=== PATIENT | female | born 1980 ===

== ENCOUNTER 2020-05-05 10:28 | Inpatient (IN) ==
[2020-05-05] MEDS ORDERED: Morphine PF AMP (0.5MG/ML) 5 MG/10 ML AMP ONE (10:34)
[2020-05-05] MEDS ORDERED: Ondansetron 4 mg VIAL 2 MG/ML 2 ml VIAL ONE (10:34)
[2020-05-05] MEDS ORDERED: Dexamethasone IV 4 MG/ML VIAL 1 ml VIAL ONE (10:34)
[2020-05-05] MEDS ORDERED: Oxytocin 10 UNITS/ML 1 ML VIAL ONE (10:34)
[2020-05-05] MEDS ORDERED: Buffered Lidocaine 1% SYRIN 1 ml INTRADERM ONE (10:47)
[2020-05-05] MEDS ORDERED: Lactated Ringers 1000 ml BAG 1,000 ML IV ONE ×2 (10:47→11:38)
[2020-05-05] MEDS ORDERED: Penicillin G Potassium IV 5,000,000 UNITS in NS 0.9% 100 ml BAG 100 ML IVPB ONE (10:50)
[2020-05-05] MEDS ORDERED: fentaNYL 100 mcg/2 ml 50 MCG/ML VIAL IV SLOW PU ONE (10:52)
[2020-05-05] MEDS ORDERED: fentaNYL 100 mcg/2 ml 50 MCG/ML VIAL ONE ×2 (10:53→12:15)
[2020-05-05] MEDS ORDERED: OBEPIDURAL 250 ML EPIDURAL ONE (10:59)
[2020-05-05] MEDS ORDERED: Lactated Ringers 1000 ml BAG 1,000 ML IV SCH ×3 (11:00→19:00)
[2020-05-05 11:13] LABS: ABS Eosinophils 0.1 10^3/ul (0-0.6); ABS Lymphocytes 1.5 10^3/ul (1.0-4.8); ABS Monocytes 0.8 10^3/ul (0-0.8); ABS Neutrophils 11.1 10^3/ul (1.5-7.7); Hematocrit 39 % (35-47); Hemoglobin 12.9 g/dL (12.0-16.0); Lymphocyte % 11.3 %; Mean Corpuscular HGB Conc 33 g/dL (31-36); Mean Corpuscular Hemoglobin 30 pg (27-31); Mean Corpuscular Volume 90 fL (80-97); Mean Platelet Volume 10.4 fL (7.4-10.4); Platelet Count 228 10^3/uL (150-450); Red Cell Distribution Width 14 % (10-15); White Blood Count 13.5 10^3/uL (3.5-10.8)
[2020-05-05] MEDS ORDERED: Phenylephrine 40 mcg/mL 10mL (400mcg) SYRINGE IV PUSH PRN ×2 (11:38)
[2020-05-05] MEDS ORDERED: Sodium Citrate/Citric Acid LIQ 15 ML UDC PO PRN ×2 (11:38→12:02)
[2020-05-05] MEDS ORDERED: Lactated Ringers 1000 ml BAG 500 ML IV PRN ×2 (11:38)
[2020-05-05] MEDS ORDERED: EPHEDrine (Pressors) 50 MG/ML VIAL IV PUSH PRN ×2 (11:38)
[2020-05-05] MEDS ORDERED: OBEPIDURAL 250 ML EPIDURAL SCH (12:00)
[2020-05-05] MEDS ORDERED: ceFOXitin 2 GM IVPREMIX 2 GM/50 ML BAG IVPB ONE (12:07)
[2020-05-05] MEDS ORDERED: Sodium Citrate/Citric Acid LIQ 15 ML UDC ONE (12:10)
[2020-05-05] MEDS ORDERED: ceFOXitin 2 GM IVPREMIX 2 GM/50 ML BAG ONE (12:10)
[2020-05-05] MEDS ORDERED: Chloroprocaine 3% 20 ml VIAL ONE (12:15)
[2020-05-05] MEDS ORDERED: DiMENhydriNATE IV 50 mg/ml 1 ml VIAL IV PUSH PRN ×2 (13:03→13:06)
[2020-05-05] MEDS ORDERED: Ondansetron 4 mg VIAL 2 MG/ML 2 ml VIAL IV PRN (13:03)
[2020-05-05] MEDS ORDERED: diPHENhydraMINE IV 50 MG/ML 1 ml VIAL (BENADRYL) IV PRN (13:03)
[2020-05-05] MEDS ORDERED: Naloxone 0.4 mg VIAL 0.4 mg/ml 1 ml VIAL IV PRN ×2 (13:03→13:06)
[2020-05-05] MEDS ORDERED: Acetaminophen IV 1 GM/100ML 1,000 MG/100 ML VIAL IVPB ONE (13:06)
[2020-05-05] MEDS ORDERED: fentaNYL 100 mcg/2 ml 50 MCG/ML VIAL IV PRN (13:06)
[2020-05-05] MEDS ORDERED: Phenylephrine 40 mcg/mL 10mL (400mcg) SYRINGE ONE (13:08)
[2020-05-05] MEDS ORDERED: EPHEDrine (Pressors) 50 MG/ML VIAL ONE (13:29)
[2020-05-05] MEDS ORDERED: Witch Hazel PAD JAR TOPICAL PRN (18:47)
[2020-05-06 07:13] LABS: Hematocrit 33 % (35-47); Hemoglobin 10.9 g/dL (12.0-16.0); Mean Corpuscular HGB Conc 33 g/dL (31-36); Mean Corpuscular Hemoglobin 30 pg (27-31); Mean Corpuscular Volume 91 fL (80-97); Mean Platelet Volume 10.3 fL (7.4-10.4); Platelet Count 197 10^3/uL (150-450); Red Blood Count 3.64 10^6 /uL (3.70-4.87); Red Cell Distribution Width 14 % (10-15); White Blood Count 19.2 10^3/uL (3.5-10.8)
[2020-05-06] MEDS ORDERED: Influenza VAC *QUAD* 2020-21* 0.5 ML SYRINGE IM ONE (09:00)
[2020-05-06 09:28] LABS: ABS Eosinophils 0.1 10^3/ul (0-0.6); ABS Lymphocytes 1.9 10^3/ul (1.0-4.8); ABS Monocytes 1.8 10^3/ul (0-0.8); ABS Neutrophils 15.4 10^3/ul (1.5-7.7); Eosinophil % 0.3 %
[2020-05-06] MEDS ORDERED: Ondansetron ODT 4 mg TAB 4 MG TAB PO PRN (22:17)
[2020-05-08 07:41] VITALS: BP 139/81
== END 2020-05-08 15:57 | disposition home or self-care (01) | DRG 540 ==
LOC: MCHOBOUT 10:28 → MCHOB 10:43
PROVIDERS: ADMIT Obstetrics & Gynecology; ATTEND Obstetrics & Gynecology